=== PATIENT | female | born 1960 | race Caucasian/White ===

== ENCOUNTER 2024-05-13 08:59 | Outpatient (REF) | payer OTHER, SELFPAY | END 2024-05-13 09:00 | disposition home or self-care (01) | LOC: HO.HOSX 08:59 | PROVIDERS: PCP Family Medicine; Visit Provider Orthopaedic Surgery | DX: M25.562 Pain in left knee (principal) | CPT/HCPCS: 73560; 73562 ==

== ENCOUNTER 2024-05-13 08:59 | Outpatient (AMB) | payer OTHER, SELFPAY ==
--- NOTE | 2024-05-13 09:02 | A.OFFVIS_ITS ---
Vital Signs 05/13/24 09:25 Height 5 ft 5.5 in Weight 137 lb BMI 22.4 Intake Visit Reasons: [employer]- LT knee pain Intake Note: Phoebe is a 64 year old female who presents today as a new patient with complaints of left knee pain. Patient reports that she has recely started hiking again and has noticed a pain on the medial aspect of her thigh/knee while hiking. She explains that this is, felt as a sharp shooting pain that comes and goes while participating in activity. She explains that this pain is tolerable but noticeable. Denies numbness and tingling. Allergies Penicillins Allergy (Verified 05/13/24 09:28) Anaphylaxis HPI HPI [employer]- LT knee pain: Details: Phoebe is a 64 year old female who presents today as a new patient with complaints of left knee pain. Patient reports that she has recely started hiking again and has noticed a pain on the medial aspect of her thigh/knee while hiking. She explains that this is, felt as a sharp shooting pain that comes and goes while participating in activity. She explains that this pain is tolerable but noticeable. Denies numbness and tingling. She has been [place] in [place] and is serious about it. The knee has not prevented her from hiking but it certainly bothers her during and after the Heights especially when she is going downhill. Most of the pain is medial PFSH Surgical History (Updated 05/13/24 @ 09:29 by Colleen Cruz CMA) Hx of eye surgery (~1992) Social History (Updated 05/13/24 @ 09:29 by Colleen Cruz CMA) Current occupational status: retired Physical Exam Vital Signs: BMI result Body Mass Index 22.4 Extrem Other: There is tenderness to palpation in the pes anserinus bursa that is sharp and reproduces her primary complaint. She has a negative Anabel's and full knee range of motion with no joint line tenderness. Results Reviewed Results Reviewed: I personally reviewed relevant radiographs. Normal radiographs of the left knee Assessment & Plan Assessment & Plan (1) Pes anserine bursitis: Code(s): M70.50 - Other bursitis of knee, unspecified knee Category: Medical Plan: This is a 64-year-old with pes anserinus bursitis of the left knee. We reviewed the diagnosis and treatment options. We discussed anti-inflammatories ice, PT and injections. At this point in time she will work on her strengthening and try a course of low-dose [id number] ibuprofen. If that is not sufficiently helpful we can consider physical therapy and/or injections. Orders: Orders XR knee LT 3V Today M25.562 - Pain in left knee Coding Level of Care Code New Pt Level 3 (73879) Diagnoses Pes anserine bursitis M70.50
[2024-05-13 09:25] VITALS: BMI 22.4
== END 2024-05-13 10:00 | disposition home or self-care (01) ==
PROVIDERS: PCP Family Medicine; Visit Provider Orthopaedic Surgery
DX: M70.52 Other bursitis of knee, left knee (principal)
CPT/HCPCS: 99203